=== PATIENT | female | born 1965 | race Asian ===

== ENCOUNTER 2016-10-21 08:38 | Day surgery (SDC) | payer OTHER ==
[2016-10-21 09:06] LABS: HCG UR QUAL NEGATIVE
[2016-10-21] MEDS ORDERED: LACTATED RINGERS 1,000 ML IV ONE ×2 (09:22→12:35)
--- NOTE | 2016-10-21 11:41 | HISTORY & PHYSICAL EXAMINATION ---
HPI - History of Present Illness HPI Comment/Other: Visit Type: Initial Consult Referring Provider: Nasir Kramer History of Present Illness: Patient is here today for a EGD consult....................................................................Keaton Fink MA September 11, 2016 9:53 AM Chanelle is here referred by the [facility] for screening colonoscopy and EGD. She has never had a prior colonoscopy and turns 51 in December. She states that she has regular bowel movements and denies constipation or diarrhea. She denies any blood in her stools. She denies any unexplained weight loss or loss of appetite. She has no family history of colon cancer. She has a paternal aunt who was diagnosed with gastric cancer in her 60s. She occasionally has mild epigastric pain after she eats. This has been going on for a few months. The pain is not burning and is sharp in nature and is very minimal and resolves spontaneously. It only lasts a few seconds. She states that while she was in [place] last October she paid to have a barium swallow as a screening test. She was not having any symptoms at this time. According to the patient she was told that she had an abnormality near her pylorus which should be followed up with an EGD. She has the paperwork at home however, it is in [place]. Current Meds: None Allergies: NKDA Past Surgical History: Reviewed history and no changes required: Appendectomy Family History Summary: Reviewed history and no changes required: 09/11/2016 Father (ezra.) - Has Family History of Other Cancer - Entered On: 09/11/2016 Social History: Reviewed history and no changes required: Risk Factors: Smoked Tobacco Use: Current every day smoker Cigarettes: Yes Counseled to quit/cut down: yes Drug use: no Exercise: yes Times per week: 5 Review of Systems See HPI Physical Exam General: well developed, well nourished, in no acute distress Lungs: clear bilaterally to A & P Heart: regular rate and rhythm, S1, S2 without murmurs, rubs, gallops, or clicks Abdomen: bowel sounds positive; abdomen soft and non-tender without masses, organomegaly, or hernias noted Pulses: pulses normal in all 4 extremities Extremities: no clubbing, cyanosis, edema, or deformity noted with normal full range of motion of all joints Cervical Nodes: no significant adenopathy Psych: alert and cooperative; normal mood and affect; normal attention span and concentration Problems: Problems Added: 1) Dx of Screening, colon cancer ([id number]) (ICD-V76.51) Impression & Recommendations: Problem # 1: Screening for colon cancer I have explained the colonoscopy procedure to the patient in detail and the risks involved, including but not limited to bleeding, perforated viscus and missing lesions. The patient understands the above and has agreed to proceed with the procedure. Colon prep instructions and prescription provided. Approximately 20 minutes spent in preparing the patient; all Questions and concerns were addressed. Problem # 2: Abnormal upper GI swallow study I have requested the patient to bring her reports to the office and we will have them translated. If there is infact a mucosal abnormality on the swallow study EGD will be warrented. This procedure was discussed with the patient in detail including potential risks involved including but not limited to bleeding , perforation, and missed lesions. She understands all the above and agrees to proceed. PMH/PSH - Past Medical History Cardiovascular: positive: None Respiratory: positive: None Endocrine/Autoimmune: positive: None GI: positive: None : positive: None HEENT: positive: None Psych: positive: None Musculoskeletal: positive: None Derm: positive: None MRSA Hx?: No - Past Surgical History General: positive: Appendectomy Meds/Allgy - Allergies Allergies/Adverse Reactions: Allergies Allergy/AdvReac Type Severity Reaction Status Date / Time No Known Drug Allergies Allergy Verified 10/21/16 09:25 Exam - Vital Signs Vital Signs: Vital Signs x48h Temp Pulse Resp BP Pulse Ox 10/21/16 08:51 37.1 C 84 16 133/67 H 100 Results - Lab Results Other Lab Results: Lab Results x24hrs 10/21/16 Range/Units 08:55 Ur Specific [place] >=1.030 H (1.002-1.030) Urine HCG, Qual NEGATIVE
[2016-10-21] MEDS ORDERED: MIDAZOLAM 2 MG/2 ML VIAL IVP ONE (11:44)
[2016-10-21] MEDS ORDERED: fentaNYL 100 MCG/2 ML VIAL IVP ONE (11:44)
[2016-10-21 12:59] VITALS: BP 111/77
== END 2016-10-21 08:39 | disposition home or self-care (01) ==
LOC: SDS 08:38
PROVIDERS: ATTEND Surgery
PROC: 0DJD8ZZ Inspection of Lower Intestinal Tract, Via Natural or Artificial Opening Endoscopic (ICD-10-PCS; principal; 2016-10-21 10:00)
PROC: 0DJ08ZZ Inspection of Upper Intestinal Tract, Via Natural or Artificial Opening Endoscopic (ICD-10-PCS; 2016-10-21 10:00)
DX: Z12.11 Encounter for screening for malignant neoplasm of colon (principal); R93.3 Abnormal findings on diagnostic imaging of other parts of digestive tract; K64.8 Other hemorrhoids; F17.210 Nicotine dependence, cigarettes, uncomplicated
CPT/HCPCS: 43235; 45378; 81025; J7120